=== PATIENT | female | born 1985 | race Two or more races ===

== ENCOUNTER 2021-09-15 16:16 | Emergency (ER) | payer MEDICAID, OTHER ==
[~2021-09-15] VITALS: Ht 172.7 cm; Wt 95.3 kg
[2021-09-15 16:32] VITALS: BP 123/70
== END 2021-09-15 18:21 | disposition left against medical advice (07) ==
LOC: ER 16:16
DX: R10.9 Unspecified abdominal pain (principal); Z53.21 Procedure and treatment not carried out due to patient leaving prior to being seen by health care provider

== ENCOUNTER 2022-11-04 01:23 | Emergency (ER) | payer MEDICAID ==
[~2022-11-04] VITALS: Ht 172.7 cm; Wt 83.4 kg
[2022-11-04 01:52] LABS: Eosinophils # (auto) 0.1 10 ^3/uL (0-0.8); Eosinophils % (auto) 0.5 % (0.0-7.0); Hemoglobin 8.8 g/dL (12.2-16.2); Nucleated Red Blood Cells % 0.1 %
[2022-11-04 01:53] LABS: Basophils # (auto) 0.1 10 ^3/uL (0-0.2); Basophils % (auto) 0.6 % (0.0-2.0); Hematocrit 30.2 % (36.0-46.0); Mean Corpuscular Hemoglobin 20.6 pg (28.0-32.0); Mean Corpuscular Hgb Conc. 29.2 g/dL (32.0-36.0); Mean Corpuscular Volume 70.4 fL (80.0-100.0); Monocytes # (auto) 0.4 10 ^3/uL (0-1.3); Monocytes % (auto) 3.2 % (0.0-12.0); Neutrophils # (auto) 9.7 10 ^3/uL (1.6-8.6); Neutrophils % (auto) 86.7 % (37.0-80.0); Red Blood Cells 4.29 10^6/uL (4.0-5.20); White Blood Cell 11.2 10^3/uL (4.4-10.8)
[2022-11-04 02:09] LABS: Albumin 3.7 g/dL (3.4-5.0); Calcium 8.4 mg/dL (8.5-10.1); Magnesium 2.1 mg/dL (1.6-2.6); Potassium 3.9 mmol/L (3.5-5.1); Red Cell Distribution Width 20.4 % (11.8-14.3)
[2022-11-04 02:12] LABS: Bilirubin, Total 0.2 mg/dL (0.2-1.0); Total Protein 7.8 g/dL (6.4-8.2)
[2022-11-04 02:32] LABS: INR 0.99 (0.9-1.15); Partial Thromboplastin Time 25.9 sec (24.6-33.4)
[2022-11-04 03:39] VITALS: BP 135/84
== END 2022-11-04 03:41 | disposition home or self-care (01) ==
LOC: ER 01:23
DX: R07.89 Other chest pain (principal); Z87.442 Personal history of urinary calculi; Z79.899 Other long term (current) drug therapy
CPT/HCPCS: 36415; 71045; 80053; 83735; 83880; 84484; 85025; 85610; 85730; 93005

== ENCOUNTER → 2023-05-06 | Emergency (ER) | payer MEDICAID | END | disposition left against medical advice (07) | LOC: EDUNIT# 14:33 → ER 14:50 → EDBD 14:50 | DX: R10.9 Unspecified abdominal pain (principal); Z53.21 Procedure and treatment not carried out due to patient leaving prior to being seen by health care provider ==

== ENCOUNTER 2024-01-30 12:24 | Emergency (ER) | payer MEDICAID ==
[~2024-01-30] VITALS: Ht 172.7 cm; Wt 90.0 kg
[2024-01-30] MEDS: SODIUM CHLORIDE 0.9% 1,000 ML IVB ONE (13:05)
[2024-01-30] MEDS: NALOXONE HCL 1MG/ML 2ML SYRINGE IV ONE (13:05)
[2024-01-30 15:14] LABS: Urine Bacteria MOD /hpf (None Seen); Urine Blood Negative /uL (Negative); Urine Clarity Clear (Clear); Urine Protein, UAD Negative (Negative); Urine Specific Gravity 1.004 (1.001-1.035); Urine Urobilinogen Normal (Negative); Urine WBC 3 /hpf (0 - 5); Urine pH 6.5 (5.0-9.0)
[2024-01-30 15:15] LABS: Urine Color Light-Yellow (Yellow)
[2024-01-30 15:26] LABS: Amphetamine Screen, Urine Neg (NEGATIVE); Barbiturate Scree,Urine Neg (NEGATIVE); Benzodiazephine Screen, Urine Neg (NEGATIVE); Cannabinoid Screen, Urine Neg (NEGATIVE); Cocaine Screen, Urine Neg (NEGATIVE); Opiate Scree,Urine Neg (NEGATIVE); Phencyclidine Screen, Urine Neg (NEGATIVE)
[2024-01-30] MEDS ORDERED: NITR-87 PO (15:58)
[2024-01-30] MEDS: SODIUM CHLORIDE 0.9% 1,000 ML IV ONE ×2 (16:00→16:16)
[2024-01-30] MEDS: THIAMINE 100mg/ml INJ (200mg/2ml VIAL) IV ONE (16:02)
[2024-01-30 20:56] VITALS: BP 105/65; PULSE 71; RESP 19; O2SAT 95
== END 2024-01-30 21:03 | disposition home or self-care (01) ==
LOC: EDBD 12:24 → ER 12:24
DX: F10.10 Alcohol abuse, uncomplicated (principal); N39.0 Urinary tract infection, site not specified; F19.90 Other psychoactive substance use, unspecified, uncomplicated; E11.9 Type 2 diabetes mellitus without complications; Z87.442 Personal history of urinary calculi; Z98.890 Other specified postprocedural states; Z79.899 Other long term (current) drug therapy; Y90.0 Blood alcohol level of less than 20 mg/100 ml
CPT/HCPCS: 36415; 80307; 80320; 81001; 93005; 96361; 96374; 96375; 99285; J2310; J3411; J7030